=== PATIENT | male | born 1960 | race Caucasian/White ===

== ENCOUNTER 2019-05-14 00:44 | Emergency (ER) | payer SELFPAY ==
[2019-05-14] MEDS ORDERED: ALBUTEROL SULFATE HFA (90 MCG/PUFF) 8 GM MDI (1 MDI/ER DISP) IH ONE (00:55)
[2019-05-14] MEDS ORDERED: LEVOFLOXACIN 750 MG/D5W RTU 150 ML IV ONE (01:06)
[2019-05-14] MEDS ORDERED: METHYLPREDNISOLONE INJ 125 MG/2 ML SDV IV ONE (01:16)
--- NOTE | 2019-05-14 01:16 | ER Document Report ---
ED General - General Chief Complaint: Breathing Difficulty Stated Complaint: DIFFICULTY BREATHING Primary Care Provider: JAZMIN ARREAGA MD [ACTIVE STAFF] - Follow up as needed Notes: 58-year-old male presents to the emergency department complaining of sudden onset of shortness of breath. Patient states that this started about 3 days ago, states that he took a warm shower and was able to cough up a large glob of phlegm and then felt much better. Admits to sweating, denies chills or fevers. States that the shortness of breath started again suddenly and worse just prior to arrival. States that he feels like he has a bunch of fluid and/or phlegm in his chest and if he could just get it up he would feel better. Denies chest pain. Denies any travel, denies leaving his house, states he has been staying in his house like he supposed to. Denies any sick contacts. Admits smoking. Denies any history of congestive heart failure. TRAVEL OUTSIDE OF THE [place] IN LAST 30 DAYS: No - Related Data Allergies/Adverse Reactions: Shellfish * [Shellfish] Allergy (Verified 05/08/14 20:59) codeine [Codeine] Adverse Reaction (Severe, Verified 05/08/14 21:00) VOMITING Past Medical History - General Information source: Patient - Social History Smoking Status: Current Every Day Smoker Frequency of alcohol use: None Drug Abuse: None Family History: Other - Congestive heart failure. - Immunizations Hx Diphtheria, Pertussis, Tetanus Vaccination: No Review of Systems - Review of Systems Constitutional: See HPI, Diaphoresis, Malaise. denies: Chills, Fever EENT: No symptoms reported Cardiovascular: See HPI, Dyspnea. denies: Chest pain, Palpitations Respiratory: See HPI, Cough, Short of breath, Sputum. denies: Hurts to breathe -: Yes All other systems reviewed and negative Physical Exam - Vital signs Vitals: Resp Pulse Ox 31 H 100 05/14/19 00:45 05/14/19 00:45 - Notes Notes: GENERAL: Sitting straight up in bed, short of breath, tachypneic, diaphoretic, a ppears very short of breath and uncomfortable. HEAD: Normocephalic, atraumatic EYES: Pupils equal, round and reactive to light, extraocular movements intact. ENT: Oral mucosa moist, tongue midline. NECK: Full range of motion, supple, trachea midline. LUNGS: Initially minimal air movement, sitting up, tripoding, using accessory muscles of respiration, able to speak in 2-3 word sentences, after using MDI with spacer for 4 puffs patient is having significantly better air movement, rhonchi in the right lower lobe, no wheezing though he is still tripoding and using accessory muscles of respiration. Acutely in respiratory distress. HEART: Tachycardic rate and rhythm, no murmurs, gallops, rubs. ABDOMEN: Soft, nontender, nondistended, bowel sounds present in all 4 quadrants. EXTREMITIES: Moves all 4 extremities spontaneously, no edema, radial and dorsalis pedis pulses 2/4 bilaterally. No cyanosis. NEUROLOGICAL: Alert and oriented x3, normal speech. PSYCH: Normal mood, normal affect. SKIN: Warm, profusely diaphoretic, no edema. Course - Re-evaluation Re-evalutation: 05/14/19 02:20 On arrival patient was acutely short of breath, quite concerning for possible COVID 19, patient was hypoxic and placed on nonrebreather at 15 L, able to be titrated down to 10 L. Patient was then given albuterol using an inhaler and spacer 4 puffs x 2, this did significantly relieve a large amount of his shortness of breath, left some rhonchi in the right lower lobe. Patient had chest x-ray performed that showed possible mild pulmonary edema, EKG actually showed diffuse ST segment depression concerning for ischemia. Patient given nitroglycerin which did improve his shortness of breath. Patient has never had any chest pain with this. EKG is mildly improved after nitroglycerin. Patient is now down to 6 L via nasal cannula and is 96%. Resting in bed quite comfortably, lying on his side and occasionally lying on his abdomen. CBC shows leukocytosis at 16.0, INR slightly prolonged, VBG shows acidosis with a pH of 7.25 which goes along with his market tachypnea, CMP shows slightly elevated potassium at 5.3, glucose elevated at 335, lactic elevated at 2.6, AST elevated at 308, ALT elevated at 195, alkaline phosphatase elevated at 280. Troponin is positive at 7.14, proBNP elevated at 2080. Flu swabs are negative. 05/14/19 02:20 Patient was initially started on Levaquin and Solu-Medrol based off of physical examination, hypoxia and rhonchi in the right lower lobe concerning for possible right lower lobe pneumonia. After getting back the chest x-ray, EKG and troponin I feel this is unlikely to represent pneumonia after all. Patient will be started on heparin. Discussed with patient that he needs to be transferred to a more advanced cardiac center, patient request transfer to [facility]. 05/14/19 02:29 Given rapid improvement, positive troponin and EKG changes and now feel this is very unlikely to be COVID 19. Testing will be canceled and droplet precautions will be removed. 05/14/19 02:33 Patient has been accepted by the [facility] transfer line coordinator on behalf of Dr. Panfilo Silver. 05/14/19 03:[address] aPppas called back from [facility], discussed the patient with me, agrees with current treatment. - Vital Signs Vital signs: Temp Pulse Resp BP Pulse Ox 97.7 F 92 23 H 126/67 H 97 05/14/19 02:34 05/14/19 02:34 05/14/19 02:34 05/14/19 02:34 05/14/19 03:00 - Laboratory Result Diagrams: 05/14/19 00:55 05/14/19 00:55 Laboratory results interpreted by me: 05/14/19 05/14/19 05/14/19 00:55 00:55 00:55 WBC 16.0 H MCHC 31.9 L RDW 14.9 H Lymph % (Auto) 12.3 L Absolute Neuts (auto) 12.6 H Seg Neutrophils % 78.6 H VBG pH 7.25 L Potassium 5.3 H BUN 25 H Glucose 335 H Lactic Acid Direct Bilirubin 0.6 H AST 308 H ALT 195 H Alkaline Phosphatase 280 H NT-Pro-B Natriuret Pep 05/14/19 05/14/19 00:55 00:55 WBC MCHC RDW Lymph % (Auto) Absolute Neuts (auto) Seg Neutrophils % VBG pH Potassium BUN Glucose Lactic Acid 2.6 H Direct Bilirubin AST ALT Alkaline Phosphatase NT-Pro-B Natriuret Pep 2080 H - EKG Interpretation by Me Additional EKG results interpreted by me: 05/14/19 01:27 EKG shows sinus tachycardia at a rate of 106, ST segment depressions in 1, aVL, V4 through V6, [address] segment elevations in aVR and aVF, no other ST segment elevations noted, T wave inversions in 1 and aVL, normal axis, normal intervals per my interpretation. 05/14/19 02:22 Repeat EKG shows sinus rhythm at a rate of 93, normal axis, normal intervals, improved ST segment depressions in 1 and aVL, worsened ST segment depressions in V4, improved ST segment depressions in V5 and V6, still no ST segment elevations per my interpretation. Critical Care Note - Critical Care Note Total time excluding time spent on procedures (mins): 55 Discharge - Discharge Clinical Impression: NSTEMI (non-ST elevated myocardial infarction), Flash pulmonary edema, Hypertensive emergency Condition: Fair Disposition: [facility] Referrals: JAZMIN ARREAGA MD [ACTIVE STAFF] - Follow up as needed
[2019-05-14] MEDS ORDERED: NITROGLYCERIN 0.4 MG/TAB 25 TAB/BOTTLE SL PRN (01:25)
[2019-05-14 01:27] LABS: VENOUS BLOOD BASE EXCESS -6.3 mmol/L; VENOUS BLOOD HCO3 21.4 mmol/L (20-32); VENOUS BLOOD PCO2 49.9 mmHg (35-63); VENOUS BLOOD PH 7.25 (7.30-7.42)
[2019-05-14 01:29] LABS: ABSOLUTE BASOPHILS # (AUTO) 0.1 10^3/uL (0.0-0.2); ABSOLUTE EOSINOPHILS # (AUTO) 0.4 10^3/uL (0.0-0.6); ABSOLUTE MONOCYTES (AUTO) 0.9 10^3/uL (0.1-1.4); ABSOLUTE NEUT (AUTO) 12.6 10^3/uL (1.7-8.2); BASOPHILS % (AUTO) 0.9 % (0-2); EOSINOPHILS % (AUTO) 2.7 % (0-6); HEMATOCRIT 44.1 % (37.9-51.0); HEMOGLOBIN 14.1 g/dL (13.5-17.0); LYMPHOCYTES % (AUTO) 12.3 % (13-45); MEAN CORPUSCULAR HEMOGLOBIN 27.2 pg (27.0-33.4); MEAN CORPUSCULAR HGB CONC 31.9 g/dL (32.0-36.0); MEAN CORPUSCULAR VOLUME 85 fl (80-97); MONOCYTES % (AUTO) 5.5 % (3-13); PLATELET COUNT 304 10^3/uL (150-450); RED BLOOD COUNT 5.18 10^6/uL (4.35-5.55); RED CELL DISTRIBUTION WIDTH 14.9 % (11.5-14.0); SEGMENTED NEUTROPHILS % (AUTO) 78.6 % (42-78); TOTAL CELLS COUNTED % (AUTO) 100 %
[2019-05-14 01:34] LABS: INTERNATIONAL RATION (INR) 1.11; PROTHROMBIN TIME 14.3 SEC (11.4-15.4)
[2019-05-14 01:49] LABS: A TYPE INFLUENZA AG NEGATIVE (NEGATIVE); B INFLUENZA AG NEGATIVE (NEGATIVE)
[2019-05-14 01:50] LABS: ALBUMIN 4.3 g/dL (3.5-5.0); ALKALINE PHOSPHATASE 280 U/L (38-126); ANION GAP 11 (5-19); ASPARTATE AMINO TRANSFERASE 308 U/L (17-59); BILIRUBIN,DIRECT 0.6 mg/dL (0.0-0.4); BILIRUBIN,TOTAL 0.8 mg/dL (0.2-1.3); BLOOD UREA NITROGEN 25 mg/dL (7-20); CALCIUM 9.7 mg/dL (8.4-10.2); CARBON DIOXIDE 26 mmol/L (22-30); CHLORIDE 102 mmol/L (98-107); GLUCOSE 335 mg/dL (75-110); POTASSIUM 5.3 mmol/L (3.6-5.0); TOTAL PROTEIN 7.8 g/dL (6.3-8.2)
--- NOTE | 2019-05-14 01:56 | RADIOLOGY REPORT (SQ) ---
Chest one view on 05/14/2019 at 1:29 AM CLINICAL INDICATION: Cough, shortness of breath, hypoxia, question COVID COMPARISON: None FINDINGS: There are mild increased reticular interstitial opacities that may be chronic in nature versus mild edema. Lungs are otherwise clear. Cardiac, hilar and mediastinal contours are within normal limits. No bony normality is noted. IMPRESSION: Mild increased reticular interstitial changes that may be chronic in nature versus mild edema. No pulmonary opacities are identified that are worrisome for definite viral infection. Please note that chest radiographs have low sensitivity for subtle groundglass opacities.
[2019-05-14] MEDS ORDERED: LEVOFLOXACIN 750 MG/D5W RTU 750 MG/150 ML RTUPB IV ONE (02:00)
[2019-05-14 02:03] LABS: TROPONIN I 7.14 ng/mL
[2019-05-14] MEDS ORDERED: HEPARIN SODIUM,PORCINE/D5W 25,000 UNIT/250 ML RTUINJ IV PRN (02:21)
[2019-05-14] MEDS ORDERED: HEPARIN SOD (PORCINE) 1,000 UNIT/ML 10 ML VIAL IV ONE (02:21)
[2019-05-14] MEDS ORDERED: FUROSEMIDE INJ/PF 40 MG/4 ML SDV IV ONE (02:23)
[2019-05-14] MEDS ORDERED: METOPROLOL TARTRATE 25 MG TABLET PO ONE (02:30)
[2019-05-14] MEDS ORDERED: ATORVASTATIN CALCIUM 20 MG TABLET PO ONE (02:30)
[2019-05-14] MEDS ORDERED: ASPIRIN 325 MG TABLET PO ONE (02:30)
[2019-05-14 03:51] LABS: APPEARANCE,URINE CLEAR; BILIRUBIN,URINE NEGATIVE (NEGATIVE); COLOR,URINE COLORLESS; GLUCOSE, URINE >=500 mg/dL (NEGATIVE); KETONES,URINE TRACE mg/dL (NEGATIVE); PROTEIN,URINE NEGATIVE (NEGATIVE); URINE SPECIFIC GRAVITY 1.003; UROBILINOGEN,URINE NEGATIVE mg/dL (<2.0)
[2019-05-14] MEDS ORDERED: HEPARIN SOD (PORCINE) 1,000 UNIT/ML 10 ML VIAL IV PRN (05:21)
[2019-05-14 08:21] VITALS: BP 114/74
--- NOTE | 2019-05-14 08:22 | ER Document Report ---
Doctor's Note Notes: 05/14/19 08:21 Transport is here to take the patient to [facility]. At this time his vital signs are stable with a blood pressure 114/74, pulse ox 99%, and heart rate 73. He is in no distress at this time. He is stable for transfer.
--- NOTE | 2019-05-14 08:25 | EKG REPORT ---
SEVERITY:- ABNORMAL ECG - SINUS RHYTHM LEFT ATRIAL ABNORMALITY INFERIOR INFARCT, AGE INDETERMINATE REPOL ABNRM SUGGESTS ISCHEMIA, DIFFUSE LEADS : Confirmed by: Lemuel Torres MD 14-May-2019 08:25:11
--- NOTE | 2019-05-14 08:29 | EKG REPORT ---
SEVERITY:- ABNORMAL ECG - SINUS TACHYCARDIA PROBABLE LEFT ATRIAL ABNORMALITY INFERIOR INFARCT, AGE INDETERMINATE CONSIDER ANTERIOR INFARCT REPOL ABNRM SUGGESTS ISCHEMIA, DIFFUSE LEADS ER CALLED, ALREADY TRANSFERRED TO [facility] : Confirmed by: Lemuel Torres MD 14-May-2019 08:28:50
== END 2019-05-14 09:03 | disposition short-term general hospital (02) ==
LOC: ER 00:44
DX: I21.4 Non-ST elevation (NSTEMI) myocardial infarction (principal); I16.1 Hypertensive emergency; I11.0 Hypertensive heart disease with heart failure; I50.1 Left ventricular failure, unspecified; F17.200 Nicotine dependence, unspecified, uncomplicated; R09.02 Hypoxemia; R61 Generalized hyperhidrosis; R53.81 Other malaise; R06.02 Shortness of breath; R05 Cough; Z91.013 Allergy to seafood; Z82.49 Family history of ischemic heart disease and other diseases of the circulatory system
CPT/HCPCS: 93005; 96376; 99291; 96375; 96365; 96366; 96368; 36415; 87040; 83605; 85025; 85610; 85730; 87077; 80053; 81001; 84484; 87186; 82803; 87804; 87150 ×26; 83880; 71045; 93010; J1644 ×2; J1940; J2930; J1956; J3490

== ENCOUNTER 2019-05-26 22:24 | Emergency (ER) | payer SELFPAY ==
[2019-05-26] MEDS ORDERED: INSULIN REG, HUMAN 100 UNIT/ML 3 ML VIAL (PYX) SUBCUT ONE (23:45)
[2019-05-26] MEDS ORDERED: HYDROMORPHONE HCL INJ/PF 2 MG/ML AMPULE IM ONE (23:46)
--- NOTE | 2019-05-26 23:47 | ER Document Report ---
ED General - General Chief Complaint: Chest Wall Pain Stated Complaint: SHORTNESS OF BREATH Time Seen by Provider: 05/26/19 23:25 Mode of Arrival: Ambulatory Information source: Patient TRAVEL OUTSIDE OF THE [place] IN LAST 30 DAYS: No - HPI Onset: This evening Onset/Duration: Gradual Quality of pain: Sharp Severity: Severe Pain Level: 5 Associated symptoms: None Exacerbated by: Coughing Relieved by: Remaining still Similar symptoms previously: Yes - since his CABG surgery in the last week Recently seen / treated by doctor: No Notes: 58 year old male with a history of a recent CABG at [facility] in the last week (patient was discharged today), CHF, HTN, HLD, DM here in the ER for chest wall pain from his recent CABG Surgery. The patient left [facility] today and his car broke down so he was unable make it to a pharmacy to get his pain medications filled and to get glucose test strips. The patient is unsure what his glucose is but he says he has had several sandwiches today. The patient says coughing makes his chest wall pain worse. The patient is only in the ER to get a dose of pain medication. The patient has prescriptions for pain medications and for glucose test strips already. - Related Data Allergies/Adverse Reactions: Shellfish * [Shellfish] Allergy (Verified 05/08/14 20:59) codeine [Codeine] Adverse Reaction (Severe, Verified 05/08/14 21:00) VOMITING Home Medications: Dilaudid. Lasix 20mg. pantoprazole 40mg. novolin. metoprolol Past Medical History - General Information source: Patient - Social History Smoking Status: Current Every Day Smoker Frequency of alcohol use: None Drug Abuse: None Family History: Other - Congestive heart failure. Patient has suicidal ideation: No Patient has homicidal ideation: No - Past Medical History Cardiac Medical History: Reports: Hx Congestive Heart Failure, Hx Hypertension Endocrine Medical History: Reports: Hx Diabetes Mellitus Type 2 Past Surgical History: Reports: Hx Cardiac Surgery - triple bypass 2020 - Immunizations Hx Diphtheria, Pertussis, Tetanus Vaccination: No Review of Systems - Review of Systems Constitutional: No symptoms reported EENT: No symptoms reported Cardiovascular: Other - chest wall pain from recent CABG Respiratory: No symptoms reported Gastrointestinal: No symptoms reported Genitourinary: No symptoms reported Male Genitourinary: No symptoms reported Musculoskeletal: No symptoms reported Skin: No symptoms reported Hematologic/Lymphatic: No symptoms reported Neurological/Psychological: No symptoms reported -: Yes All other systems reviewed and negative Physical Exam - Vital signs Vitals: Temp 98.4 F 05/26/19 22:27 - Notes Notes: GENERAL: Well-appearing, well-nourished and in mild distress laying on his chest with a pillow under his chest. HEAD: Atraumatic, normocephalic. EYES: Pupils equal round and reactive to light, extraocular movements intact, sclera anicteric, conjunctiva are normal. ENT: Nares patent, oropharynx clear without exudates. Moist mucous membranes. NECK: Normal range of motion, supple without lymphadenopathy or JVD. LUNGS: Breath sounds clear to auscultation bilaterally and equal. No wheezes rales or rhonchi. HEART: Regular rate and rhythm without murmurs, rubs or gallops. ABDOMEN: Soft, nontender, normoactive bowel sounds. No guarding, no rebound. No masses appreciated. EXTREMITIES: Normal range of motion, no pitting or edema. No clubbing or cyanosis. NEUROLOGICAL: Cranial nerves II through XII grossly intact. Normal speech, normal gait. PSYCH: Normal mood, normal affect. SKIN: Well healing CABG Surgical Wounds. Warm, Dry, normal turgor, no rashes or lesions noted. Course - Re-evaluation Re-evalutation: 05/26/19 23:59 The patient requested pain medication in the ER to bridge him until he can get to a pharmacy in the morning. 1mg of IM Dilaudid was given in the ER. The patient's blood glucose was in the 300s so he was given a dose of Insulin (10 units Regular Insulin). Patient tells me he has a prescription for glucose test strips and he will monitor his blood glucose closely at home once he gets the pharmacy to picker and sorter load and unload the test strips. 05/27/19 01:09 Patient was given 2 doses of Insulin in the ER since his blood sugar remained after elevated after the first insulin dose. Patient told to follow up with his PCP and doctors from [facility] as soon as possible since he blood sugar is poorly controlled and he just had a cardiac surgery. - Vital Signs Vital signs: Temp Pulse Resp BP Pulse Ox 98.4 F 29 H 127/68 H 96 05/26/19 22:27 05/26/19 23:01 05/26/19 23:01 05/26/19 23:01 - Laboratory Laboratory results interpreted by me: 05/26/19 23:43 POC Glucose 313 H - EKG Interpretation by Me EKG shows normal: Sinus rhythm, Intervals Hawley/QRS: Left axis deviation Additional EKG results interpreted by me: 05/27/19 00:02 PVCs noted, inferior q waves present, inverted T waves in aVL Discharge - Discharge Clinical Impression: Chest wall pain, Hyperglycemia Condition: Stable Disposition: HOME, SELF-CARE Instructions: Chest Wall Pain ([facility]), Hyperglycemia ([facility]) Additional Instructions: Go to the pharmacy as soon as possible to fill your prescriptions for your pain medications and glucose test strips. Take insulin as previously instructed based on your glucose readings. Follow up with your doctors and surgeons at [facility] and with your primary care doctor. Your blood sugar was not well controlled in the ER this evening and this will need to be addressed with your doctors immediately given you just had a cardiac surgery.
[2019-05-27] MEDS ORDERED: INSULIN REG, HUMAN 100 UNIT/ML 3 ML VIAL (PYX) SUBCUT ONE (00:29)
[2019-05-27 01:24] VITALS: BP 132/86
--- NOTE | 2019-05-27 10:07 | EKG REPORT ---
SEVERITY:- ABNORMAL ECG - SINUS RHYTHM VENTRICULAR PREMATURE COMPLEX PROBABLE LEFT ATRIAL ABNORMALITY INFERIOR INFARCT, OLD LATERAL LEADS ARE ALSO INVOLVED : Confirmed by: Anne-Marie Moya MD 27-May-2019 10:06:43
== END 2019-05-27 01:21 | disposition home or self-care (01) ==
LOC: ER 22:24
DX: R07.89 Other chest pain (principal); E11.65 Type 2 diabetes mellitus with hyperglycemia; I11.0 Hypertensive heart disease with heart failure; I50.9 Heart failure, unspecified; Z95.5 Presence of coronary angioplasty implant and graft; Z91.013 Allergy to seafood; Z79.899 Other long term (current) drug therapy; Z79.4 Long term (current) use of insulin
CPT/HCPCS: 93005; 99285; 96372; 82962; 93010; J1170; J1815 ×2

== ENCOUNTER 2019-11-27 16:20 | Emergency (ER) | payer MEDICAID ==
[2019-11-27 16:28] VITALS: BP 166/72
[2019-11-27] MEDS ORDERED: TETRACAINE HCL 0.5% OPH SOLN 4 ML OD ONE (16:40)
[2019-11-27] MEDS ORDERED: ERYTHROMYCIN 0.5% OPH OINTMENT 3.5 GM (ER DISP) OD PRN (17:59)
--- NOTE | 2019-11-27 18:02 | ER Document Report ---
HPI - HPI Patient complains to provider of: Eye pain Time Seen by Provider: 11/27/19 16:35 Onset: Other - 2 days Onset/Duration: Persistent Quality of pain: Achy Pain Level: 2 Context: Patient states he woke up 2 days ago and felt like something was in his eye. Patient called EMS and they did irrigate his eye. Patient complains of continued right eye discomfort. Patient denies any change in vision. Patient denies any pain with eye movement. Patient does report light sensitivity and tearing. Associated Symptoms: Other - Right eye light sensitivity Exacerbated by: Denies Relieved by: Denies Similar symptoms previously: No Recently seen / treated by doctor: No - ROS ROS below otherwise negative: Yes Systems Reviewed and Negative: Yes All other systems reviewed and negative - EENT EENT: REPORTS: Eye problems - right eye - GASTROINTESTINAL Gastrointestinal: DENIES: Nausea - DERM Skin Color: Normal Skin Problems: None Past Medical History - General Information source: Patient - Social History Smoking Status: Never Smoker Chew tobacco use (# tins/day): Yes Frequency of alcohol use: None Drug Abuse: None Family History: Reviewed & Not Pertinent, Other - Congestive heart failure. Patient has homicidal ideation: No - Past Medical History Cardiac Medical History: Reports: Hx Congestive Heart Failure, Hx Hypertension Endocrine Medical History: Reports: Hx Diabetes Mellitus Type 2 Past Surgical History: Reports: Hx Cardiac Surgery - triple bypass 2020 - Immunizations Hx Diphtheria, Pertussis, Tetanus Vaccination: No Vertical Provider Document - CONSTITUTIONAL Agree With Documented VS: Yes Exam Limitations: No Limitations General Appearance: WD/WN, No Apparent Distress - INFECTION CONTROL TRAVEL OUTSIDE OF THE [place] IN LAST 30 DAYS: No - HEENT HEENT: Atraumatic, Normocephalic Notes: Patient with corneal abrasion to the right eye, no corneal ulcer, foreign body or dendritic lesion. Patient with fluorescein uptake during examination. Lid everted, no foreign body noted. +tearing, light sensitivity. No pain with eye movement, no tenderness with palpation over the eyelid. - NECK Neck: Normal Inspection - RESPIRATORY Respiratory: Breath Sounds Normal, No Respiratory Distress - CARDIOVASCULAR Cardiovascular: Regular Rate, Regular Rhythm - MUSCULOSKELETAL/EXTREMETIES Musculoskeletal/Extremeties: MAEW - NEURO Level of Consciousness: Awake, Alert, Appropriate Motor/Sensory: No Motor Deficit - DERM Integumentary: Warm, Dry, No Rash Course - Re-evaluation Re-evalutation: 11/27/19 18:[address] Clay, Dr. Clay to bedside for examination. Agrees with plan for treatment of corneal abrasion with topical antibiotic ointment and outpatient follow-up with ophthalmology. - Vital Signs Vital signs: Temp Pulse Resp BP Pulse Ox 98.1 F 95 18 166/72 H 98 11/27/19 16:35 11/27/19 16:28 11/27/19 16:28 11/27/19 16:28 11/27/19 16:28 Procedures - Eye Procedure Right Fluorescein applied: Right Slit lamp used: Yes Eyes picture: 1 - + Corneal abrasion, no foreign body, no ulcer no dendritic lesion Discharge - Discharge Clinical Impression: Corneal abrasion, right Qualifiers: Encounter type: initial encounter Qualified Code(s): S05.01XA - Injury of conjunctiva and corneal abrasion without foreign body, right eye, initial encounter Condition: Stable Disposition: HOME, SELF-CARE Instructions: Antibiotic Therapy ([facility]), Corneal Abrasion ([facility]) Additional Instructions: Return immediately for any new or worsening symptoms Followup with your primary care provider, call tomorrow to make a followup appointment Instill 1 inch ribbon of the erythromycin ointment to the right eye 4 times a day for the next week. Your primary doctor can make a referral to ophthalmology. Follow-up with embossograph operator for further evaluation. Referrals: [facility] [Provider Group] - 11/30/19 [facility] [Provider Group] - 11/30/19
--- NOTE | 2019-11-27 22:19 | ER Document Report ---
Doctor's Note Notes: 11/27/19 22:15 I was asked to evaluate the patient with the [place]. He woke up and had a foreign body sensation in his right eye. States like he feels there is something in his eye. Patient denies any trauma. He does not wear contact lenses or glasses. He is alert, oriented, no acute distress. He is speaking in full sentences and has non labored breathing. Patient had no obvious foreign body on exam. Lid was everted and no foreign body identified. He did have a likely corneal abrasion with fluorescein uptake. He will be prescribed erythromycin. He was instructed to follow-up with his PCP and ophthalmology. Strict return precautions provided. 11/27/19 22:19
== END 2019-11-27 18:12 | disposition home or self-care (01) ==
LOC: ER 16:20
DX: S05.01XA Injury of conjunctiva and corneal abrasion without foreign body, right eye, initial encounter (principal); H57.11 Ocular pain, right eye; X58.XXXA Exposure to other specified factors, initial encounter; I50.9 Heart failure, unspecified; I11.0 Hypertensive heart disease with heart failure; E11.9 Type 2 diabetes mellitus without complications; Z95.1 Presence of aortocoronary bypass graft
CPT/HCPCS: 99283; J3490